=== PATIENT | female | born 1995 | race Caucasian/White ===

== ENCOUNTER → 2019-01-14 | Outpatient (CLI) | payer OTHER ==
--- NOTE | 2019-01-14 18:47 | CPEEG ---
[f rep st] ELECTROENCEPHALOGRAM DATE OF STUDY: INTERPRETATION: Normal EEG during wakefulness and sleep. There were no potentially epileptogenic ab normalities present in the recording. REPORT: This EEG contains 10 Hz alpha activity over the posterior head regions. There was no abnorm al activation at rest, during photic stimulation or hyperventilation. The patient became drowsy and fell asleep during the study. There was no abnormal activation during drowsiness, sleep, or during t imes of arousal. Copy requested to: Sandra Villatoro MD /[id number]/MODL
== END ==
LOC: FCPNEURO 14:58
PROVIDERS: ATTEND Psychiatry & Neurology Neurology
DX: R41.89 Other symptoms and signs involving cognitive functions and awareness (principal); F31.9 Bipolar disorder, unspecified

== ENCOUNTER → 2019-01-17 | Outpatient (CLI) | payer OTHER | LOC: BMCIMAGING 11:04 | PROVIDERS: ATTEND Emergency Medicine | DX: S62.015A Nondisplaced fracture of distal pole of navicular [scaphoid] bone of left wrist, initial encounter for closed fracture (principal); W19.XXXA Unspecified fall, initial encounter; Z87.81 Personal history of (healed) traumatic fracture ==